=== PATIENT | female | born 1970 | race Two or more races ===

== ENCOUNTER 2019-02-11 00:52 | Emergency (ER) | payer MEDICAID ==
[~2019-02-11] VITALS: Ht 160 cm; Wt 73.0 kg
[2019-02-11 02:56] LABS: BASOPHILS % 0.7 % (0.0-2.0); EOSINOPHILS % 0.9 % (0.0-5.0); HEMATOCRIT. 38.8 % (36.0-48.0); HEMOGLOBIN. 12.9 g/dL (12.0-16.0); LYMPHOCYTES % 21.1 % (20.0-50.0); MEAN CORPUSCULAR HEMOGLOBIN 29.7 pg (28.0-32.0); MEAN CORPUSCULAR VOLUME 89.2 fL (81.0-99.0); MEAN PLATELET VOLUME 9.9 fl (7.4-10.4); MONOCYTES % 7.3 % (2.0-8.0); PLATELET 246 x1000/uL (130-400); RED BLOOD CELL COUNT 4.35 mill/uL (4.2-5.4); RED CELL DISTRIBUTION WIDTH 14.3 % (11.6-14.6)
[2019-02-11 03:01] LABS: CHLORIDE 109 mEq/L (98-107)
[2019-02-11] MEDS ORDERED: DEXT 5%/0.9% NACL 1,000 ML IV ONE (04:15)
[2019-02-11 06:32] VITALS: BP 101/62
== END 2019-02-11 07:59 | disposition left against medical advice (07) ==
LOC: ER 00:52 → EDBEDREQTM 04:44 → EDBEDREQ 04:44 → EDBEDREQSVC 04:44 → CANRESERV 07:25 → ENRESERV 07:25 → ER 07:59 → CANBEDREQ 08:00
DX: E16.2 Hypoglycemia, unspecified (principal); J45.909 Unspecified asthma, uncomplicated
CPT/HCPCS: 36415; 71045; 80053; 82962; 83880; 84484; 85025; 93005; 96365; 99284; J7042

== ENCOUNTER 2019-04-21 20:10 | Emergency (ER) | payer MEDICAID ==
[~2019-04-21] VITALS: Ht 154.9 cm; Wt 78.0 kg
[2019-04-22 04:27] LABS: BASOPHILS % 0.6 % (0.0-2.0); EOSINOPHILS % 2.3 % (0.0-5.0); HEMATOCRIT. 38.5 % (36.0-48.0); HEMOGLOBIN. 12.8 g/dL (12.0-16.0); LYMPHOCYTES % 27.1 % (20.0-50.0); MEAN CORPUSCULAR HEMOGLOBIN 29.6 pg (28.0-32.0); MEAN CORPUSCULAR VOLUME 88.9 fL (81.0-99.0); MEAN PLATELET VOLUME 9.2 fl (7.4-10.4); MONOCYTES % 8.1 % (2.0-8.0); NEUTROPHILS % 61.9 % (40.0-76.0); PLATELET 237 x1000/uL (130-400); RED BLOOD CELL COUNT 4.33 mill/uL (4.2-5.4); RED CELL DISTRIBUTION WIDTH 13.5 % (11.6-14.6)
[2019-04-22 04:32] LABS: CHLORIDE 109 mEq/L (98-107)
[2019-04-22] MEDS ORDERED: ALBUTEROL (0.083%) 2.5MG/3ML NEB HHN ONE (05:00)
[2019-04-22] MEDS ORDERED: ONDANSETRON HCL 4MG/2ML INJ IV STA (05:08)
[2019-04-22] MEDS ORDERED: SODIUM CHLORIDE 0.9% 1,000 ML IV ONE (05:08)
[2019-04-22] MEDS ORDERED: KETOROLAC 30MG/ML VIAL IV STA (05:08)
[2019-04-22 07:15] VITALS: BP 118/76
== END 2019-04-22 07:28 | disposition home or self-care (01) ==
LOC: ER 20:10
DX: J06.9 Acute upper respiratory infection, unspecified (principal); J45.901 Unspecified asthma with (acute) exacerbation
CPT/HCPCS: 36415; 71045; 80053; 81025; 83880; 84484; 85025; 85379; 87804; 93005; 94640; 96374; 96375; 99284; J1885; J2405; J7030; J7611; Z7610

== ENCOUNTER 2023-01-20 18:31 | Emergency (ER) | payer MEDICAID, OTHER ==
[~2023-01-20] VITALS: Ht 162.6 cm; Wt 86.0 kg
[2023-01-20 18:43] VITALS: BP 123/86; PULSE 97; RESP 20; TEMP 99.6; O2SAT 97
[2023-01-20 19:06] LABS: CLARITY URINE CLEAR (CLEAR); COLOR URINE YELLOW (YELLOW); GLUCOSE URINE NEGATIVE (NEGATIVE); KETONES URINE NEGATIVE (NEGATIVE); LEUKOCYTE ESTERASE URINE TRACE (NEGATIVE); NITRITE URINE NEGATIVE (NEGATIVE); OCCULT BLOOD URINE TRACE (NEGATIVE); PROTEIN URINE NEGATIVE (NEGATIVE); SPECIFIC GRAVITY URINE 1.005 (1.005-1.030); UROBILINOGEN URINE 0.2 E.U./dL (0.2-1.0)
[2023-01-20 19:32] LABS: RBC URINE 0-2 /hpf (0-2); SQUAMOUS EPITHELIAL CELL URINE 1+ /lpf (RARE/1+)
[2023-01-20 19:33] LABS: WBC URINE 0-2 /hpf (0-2)
[2023-01-20 19:35] LABS: BASOPHILS % 0.4 % (0.0-2.0); EOSINOPHILS % 0.4 % (0.0-5.0); HEMATOCRIT. 42.2 % (36.0-48.0); HEMOGLOBIN. 13.9 g/dL (12.0-16.0); MEAN CORPUSCULAR HEMOGLOBIN 28.4 pg (28.0-32.0); MEAN CORPUSCULAR HGB CONC 33.1 g/dL (31.0-37.0); MEAN PLATELET VOLUME 8.9 fl (7.4-10.4); MONOCYTES % 11.7 % (2.0-8.0); NEUTROPHILS % 72.5 % (40.0-76.0); PLATELET 255 x1000/uL (130-400); RED CELL DISTRIBUTION WIDTH 13.9 % (11.6-14.6); WHITE BLOOD COUNT 7.1 x1000/uL (4.5-11.0)
[2023-01-20 19:40] LABS: BACTERIA URINE 1+; YEAST URINE FEW
[2023-01-20 19:41] LABS: CHLORIDE 105 mEq/L (98-107); INDEX HEMOLYSI 1 (1-3); INDEX ICTERIC 1 (1-4); INDEX LIPEMIC 1 (1-3); POTASSIUM 3.7 mEq/L (3.5-5.1); SODIUM 135 mEq/L (136-145)
[2023-01-20 19:53] LABS: ALANINE AMINOTRANSFERASE 35 IU/L (13-61); ALBUMIN 3.8 g/dL (3.4-5.0); ASPARTATE AMINOTRANSFERASE 16 IU/L (15-37); BILIRUBIN TOTAL 0.7 mg/dL (0.1-1.0); CALCIUM 9.1 mg/dL (8.5-10.1); CARBON DIOXIDE 22 mEq/L (21-32); CREATININE 0.8 mg/dL (0.6-1.3); GLUCOSE 117 mg/dL (70-105); PROTEIN TOTAL 7.8 g/dL (6.0-8.3); UREA NITROGEN BLOOD 10 mg/dL (7-21)
[2023-01-20] MEDS ORDERED: KETOROLAC 30MG/ML VIAL IV ONE (20:15)
[2023-01-20] MEDS ORDERED: SODIUM CHLORIDE 0.9% 1,000 ML IV ONE (21:00)
[2023-01-20 21:37] LABS: HCG SCREEN NEGATIVE
[2023-01-20 21:42] LABS: PROTHROMBIN TIME 10.5 sec (9.6-11.0)
[2023-01-21] MEDS ORDERED: IOHEXOL-300 100 ML BOTTLE ONE (06:39)
== END 2023-01-21 02:15 | disposition home or self-care (01) ==
LOC: ER 18:31
DX: R10.9 Unspecified abdominal pain (principal); J45.909 Unspecified asthma, uncomplicated; Z87.442 Personal history of urinary calculi; Z98.890 Other specified postprocedural states
CPT/HCPCS: 80053; 81003; 81025; 84703; 83690; 85025; 85610; 36415; 96361; 96374; 99285; 74177; J1885; J7030; Z7610 ×2; Q9967

== ENCOUNTER 2023-05-08 17:49 | Emergency (ER) | payer OTHER ==
[~2023-05-08] VITALS: Ht 154.9 cm; Wt 84.0 kg
[2023-05-08 18:03] VITALS: BP 139/86; TEMP 98.9
[2023-05-08] MEDS ORDERED: IPRATROPIUM BROMIDE (0.02%) 0.5MG/2.5ML NEB HHN STA (18:12)
[2023-05-08] MEDS ORDERED: METHYLPREDNISOLONE SOD SUCC 125MG/2ML (ACT-O-VIAL) IV NR (18:12)
[2023-05-08] MEDS ORDERED: METHYLPREDNISOLONE SOD SUCC 125MG/2ML (ACT-O-VIAL) IV STA (18:12)
[2023-05-08] MEDS ORDERED: IPRATROPIUM BROMIDE (0.02%) 0.5MG/2.5ML NEB HHN NR (18:12)
[2023-05-08] MEDS ORDERED: ALBUTEROL (0.083%) 2.5MG/3ML NEB HHN STA (18:12)
[2023-05-08] MEDS ORDERED: ALBUTEROL (0.083%) 2.5MG/3ML NEB HHN NR (18:12)
[2023-05-08 21:57] VITALS: PULSE 76; RESP 20; O2SAT 96
[2023-05-08] MEDS ORDERED: ALBU6.7H15 INH (22:02)
[2023-05-08] MEDS ORDERED: P50 PO (22:02)
== END 2023-05-09 00:21 | disposition home or self-care (01) ==
LOC: ER 17:49
DX: J45.901 Unspecified asthma with (acute) exacerbation (principal); Z98.890 Other specified postprocedural states
CPT/HCPCS: 71045; 94644; 99285; Z7610 ×3